=== PATIENT | male | born 1990 | race Caucasian/White ===

== ENCOUNTER 2018-02-12 13:46 | Emergency (ER) | payer SELFPAY ==
[~2018-02-12] VITALS: Ht 162.6 cm; Wt 70.0 kg
[2018-02-12] MEDS ORDERED: LIDOCAINE HCL/PF 1% 2ML VIAL INFIL ONE (15:30)
[2018-02-12] MEDS ORDERED: IBUPROFEN 600MG TABLET PO ONE (15:30)
[2018-02-12] MEDS ORDERED: BACITRACIN ZINC OINT UDPKT TOP ONE (15:30)
[2018-02-12] MEDS ORDERED: LIDOCAINE HCL/PF 1% 10 MG/ML 5ML VIAL IJ ONE (15:45)
[2018-02-12 19:21] VITALS: BP 132/74
== END 2018-02-12 19:23 | disposition home or self-care (01) ==
LOC: ER 13:46
DX: S51.811A Laceration without foreign body of right forearm, initial encounter (principal); F17.200 Nicotine dependence, unspecified, uncomplicated; Z88.0 Allergy status to penicillin; W25.XXXA Contact with sharp glass, initial encounter; Y93.89 Activity, other specified; Y92.018 Other place in single-family (private) house as the place of occurrence of the external cause
CPT/HCPCS: 12002; 99283; J3490